=== PATIENT | female | born 1930 | race Caucasian/White ===

== ENCOUNTER 2017-12-02 21:25 | Emergency (ER) | payer OTHER ==
[2017-12-02 22:01] LABS: Absolute Lymphocytes (CBC) 2.9 K/uL (0.7-4.9); Basophils % 0.6 % (0-1.3); Eosinophils % 1.2 % (0-4.4); Hematocrit 38.5 % (36.0-45.0); Lymphocytes % 31.8 % (15.3-44.8); MCH 31.5 pg (27.0-35.0); MCV 93.4 fL (80-100); MPV 9.8 fL (7.6-11.3); Monocytes % 10.9 % (3.3-12.3); RBC Red Blood Cell Count 4.13 M/uL (3.86-4.86)
--- NOTE | 2017-12-02 22:05 | RAD REPORT ---
EXAM DESCRIPTION: CT - Head Brain Wo Cont - 12/02/2017 9:59 pm CLINICAL HISTORY: Altered mental status COMPARISON: None. TECHNIQUE: Axial 5 mm thick images of the head were obtained without IV contrast. All CT scans are performed using dose optimization technique as appropriate and may include automated exposure control or mA/KV adjustment according to patient size. FINDINGS: No intracranial hemorrhage, mass, edema or shift of mid-line structures. No cortical edema or sulcal effacement. Advanced atrophy and chronic ischemic changes are present. No abnormal extra-a xial fluid collections. Ventricular size is in proportion to volume loss. Mastoid air cells and visualized portions of the paranasal sinuses are clear. No acute bony findings. IMPRESSION: Advanced atrophy and chronic ischemic change. No acute intracranial finding.
[2017-12-02 22:07] LABS: Protime INR 1.07
[2017-12-02 22:15] LABS: Potassium 3.7 mEq/L (3.6-5.0)
[2017-12-02 22:21] LABS: Albumin 4.3 g/dL (3.2-5.5); Bilirubin Direct 0.2 mg/dL (0-0.2); Bilirubin Total 1.2 mg/dL (0.3-1.2); Magnesium 1.9 mg/dL (1.8-2.5); Protein, Total 7.9 g/dL (6.0-8.3)
[2017-12-02 22:24] LABS: CKMB Creatine Kinase MB 3.4 ng/ml (0.3-4.0)
[2017-12-02 22:41] LABS: Urine Blood NEGATIVE (NEG); Urine Glucose NEGATIVE (NEG); Urine Protein TRACE (NEG); Urine Specific Gravity 1.025 (1.005-1.030); Urine pH 5.5 (5.0-7.0)
[2017-12-02] MEDS ORDERED: NA CHLORIDE 0.9% 250 ML ONE (22:52)
[2017-12-02 23:09] LABS: Urine Bacteria <20 /HPF (<20); Urine Culture Reflex Order NOT NEEDED; Urine RBC <5 /HPF (NONE SEEN)
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
[2017-12-02 23:51] VITALS: TEMP 98.7
[2017-12-02 23:53] VITALS: BP 140/87; O2SAT 96
--- NOTE | 2017-12-03 09:43 | RAD REPORT ---
EXAM DESCRIPTION: Yovani Single View12/02/2017 10:07 pm CLINICAL HISTORY: Chest pain COMPARISON: 2013 FINDINGS: A 15 millimeter round structure overlies the right hilum. Left lung appears clear. . The heart is normal size IMPRESSION: 15 millimeter round structure overlying the right hilum may represent confluence of pulm onary vessels or lymphadenopathy. PA and lateral chest series is recommended
--- NOTE | 2017-12-03 10:40 | EKG ---
Test Date: 2017-12-02 Test Time: 21:52:01 Script Manager: TOMASZ MEASUREMENT RESULTS: Intervals: Rate: 96 NM: 132 QRSD: 80 QT: 362 QTc: 457 [place]: P: 54 NM: 132 QRS: -47 T: 19 INTERPRETIVE STATEMENTS: Normal sinus rhythm Left anterior fascicular block Cannot rule out Anterolateral infarct, age undetermined Abnormal ECG Compared to ECG 10/07/2014 00:56:38 Left anterior fascicular block now present Possible Myocardial infarct finding now present Left-axis deviation no longer present Electronically Signed On 12-03-17 10:40:05 CDT by Patrick Howard
== END 2017-12-02 23:47 | disposition home or self-care (01) ==
LOC: ER 21:25
DX: Z04.9 Encounter for examination and observation for unspecified reason (principal); E03.9 Hypothyroidism, unspecified; G30.9 Alzheimer's disease, unspecified; F02.80 Dementia in other diseases classified elsewhere, unspecified severity, without behavioral disturbance, psychotic disturbance, mood disturbance, and anxiety; Z88.2 Allergy status to sulfonamides
CPT/HCPCS: 36415; 70450; 71045; 80048; 80076; 81003; 81015; 82550; 82553; 83735; 83880; 84484; 85025; 85610; 85730; 93005; 96374; 99284

== ENCOUNTER 2018-05-03 18:05 | Observation (INO) | payer OTHER ==
--- OUTSIDE RECORDS SUMMARY | 2018-05-03 18:06 | XMS REPORT | Clinical Summary ---
:1930 Author Organization [facility] Address [address] [place] [address] Care Team Providers Name Role Phone Nevin Keller PA-C Primary Care Provider Allergies Active Allergy Reactions Severity Noted Date Comments Codeine Hives 02/28/2014 Hives/rash Sulfa (Sulfonamide Antibiotics) Anaphylaxis High 02/28/2014 Current Medications Prescription Sig. Disp. Refills Start Date End Date Status memantine (NAMENDA Take 1 tablet by 60 capsule 0 04/12/2017 Active XR) 7 mg mouth every capsule,sprinkle,ER morning for 2 24hrIndications: Late weeks and then 2 onset Alzheimer's tablets by mouth disease with every morning behavioral thereafter disturbance Active Problems Problem Noted Date Late onset Alzheimer's disease with behavioral disturbance 04/12/2017 Hallucinations 02/28/2017 Memory loss 02/28/2017 Immunizations Name Dates Previously Given Next Due Pneumococcal Polysaccharide 09/21/2015 Family History Medical History Relation Name Comments No Known Problems Father Pancreatic cancer Mother Relation Name Status Comments Father (Age 30) Mother (Age 81) Social History Tobacco Use Types Packs/Day Years Used Date Never Smoker Alcohol Use Drinks/Week oz/Week Comments No Sex Assigned at Date Recorded Not on file Last Filed Vital Signs Not on file Plan of Treatment Health Maintenance Due Date Last Done Comments SHINGRIX VACCINE (#1) 1982 ZOSTER VACCINE 1992 PNEUMOCOCCAL-13 1997 INFLUENZA VACCINE 02/14/2018 06/16/2015, 06/08/2015, 05/31/2015, Additional history exists PNEUMOCOCCAL POLYSACCHARIDE VACCINE Completed 09/21/2015 AGE 65 AND OVER Results Not on fileafter 05/02/2017 Insurance Payer Benefit Plan / Group Subscriber ID Type Phone Address [employer]ET[employer] A[employer] [facility] INDEMNITY xxxxxxxxxx Indemnity MEDICARE MEDICARE PART A AND B xxxxxxxxxx Medicare [place], [place] [phone] [address]
[2018-05-03 18:52] LABS: Arterial Blood Carboxyhemoglob 0.9 % (0-1.5); Blood Gas Oxyhemoglobin 93.5 % (94-97); Blood O2 Saturation 95.4 % (92-98.5)
[2018-05-03 19:22] LABS: Absolute Lymphocytes (CBC) 1.9 K/uL (0.7-4.9); Absolute Monocytes 0.7 K/uL (0.1-1.3); Absolute Neutrophil 4.8 K/uL (1.8-8.0); Basophils % 0.5 % (0-1.3); Eosinophils % 0.4 % (0-4.4); Hematocrit 37.8 % (36.0-45.0); Lymphocytes % 25.8 % (15.3-44.8); MCV 97.9 fL (80-100); MPV 10.8 fL (7.6-11.3); Monocytes % 9.2 % (3.3-12.3); RBC Red Blood Cell Count 3.86 M/uL (3.86-4.86)
[2018-05-03 19:27] LABS: ALT/SGPT 22 U/L (12-78); AST/SGOT 17 U/L (15-37); Albumin 3.2 g/dL (3.4-5.0); Alkaline Phosphatase 94 U/L (45-117); BUN Blood Urea Nitrogen 18 mg/dL (7-18); Bicarbonate 25 mmol/L (21-32); Bilirubin Direct 0.2 mg/dL (0-0.2); Bilirubin Total 0.4 mg/dL (0.2-1.0); Magnesium 2.1 mg/dL (1.8-2.4); Potassium 4.4 mmol/L (3.5-5.1); Protein, Total 6.8 g/dL (6.4-8.2); Sodium Level 133 mmol/L (136-145)
[2018-05-03 19:30] LABS: Glucose Level 570 mg/dL (74-106)
--- NOTE | 2018-05-03 19:58 | RAD REPORT ---
EXAM DESCRIPTION: Yovani Single View05/03/2018 7:21 pm CLINICAL HISTORY: Shortness of breath COMPARISON: November 2017 FINDINGS: The lungs appear clear of acute infiltrate. The heart is normal size IMPRESSION: No acute abnormalities displayed
[2018-05-03] MEDS ORDERED: INSULIN -REGULAR HUMAN 50 UNIT/0.5 ML ML ONE (20:00)
[2018-05-03] MEDS ORDERED: NA CHLORIDE 0.9% 1,000 ML ONE (20:00)
--- NOTE | 2018-05-03 20:26 | ER ---
Nurse's Notes [facility] Name: Kendal Marc Age: 88 yrs Sex: Female : 1930 Arrival Date: 05/03/2018 Time: 18:09 Bed 25 Private MD: Diagnosis: Hyperglycemia, unspecified;Altered mental status, unspecified Presentation: 05/03 18:38 Presenting complaint: EMS states: pt had SOB and low blood pressure at half-way, en tl3 route EMS BGL was "High" IV started and 500 ml NS bolus administered, rechecked BGL prior to arrival and it still read "High". Transition of care: patient was received from another setting of care (long-term care facility), [facility]. Onset of symptoms was May 03, 2018 at 18:40. Risk Assessment: Do you want to hurt yourself or someone else? Patient reports no desire to harm self or others. Initial Sepsis Screen: Does the patient meet any 2 criteria? No. Patient's initial sepsis screen is negative. Does the patient have a suspected source of infection? No. Patient's initial sepsis screen is negative. Care prior to arrival: Medication(s) given: Normal saline infusion, 500 mL, IV initiated. 22 GA, in the left antecubital area. 18:38 Method Of Arrival: EMS: [facility] tl3 18:38 Acuity: SUSANA 3 tl3 Triage Assessment: 18:43 General: Appears comfortable, slender, well groomed, well developed, Behavior is calm, tl3 cooperative, appropriate for age. Pain: Denies pain. EENT: No signs and/or symptoms were reported regarding the EENT system. Neuro: Level of Consciousness is awake, alert, obeys commands, Oriented to person, place. Cardiovascular: Patient's skin is warm and dry. Respiratory: Airway is patent Respiratory effort is even, unlabored, Respiratory pattern is tachypnea Breath sounds are clear bilaterally. GI: No signs and/or symptoms were reported involving the gastrointestinal system. : No signs and/or symptoms were reported regarding the genitourinary system. Derm: No signs and/or symptoms reported regarding the dermatologic system. Musculoskeletal: No signs and/or symptoms reported regarding the musculoskeletal system. Historical: - Allergies: 18:43 Sulfa (Sulfonamide Antibiotics); tl3 18:43 Codeine; tl3 18:43 fenofibrate; tl3 - Home Meds: 18:43 levothyroxine 25 mcg tab 1 tab once daily [Active]; doxycycline hyclate 100 mg Oral cap tl3 1 cap every 12 hours [Active]; - PMHx: 18:43 Alzheimers; Hypothyroidism; tl3 - Immunization history:: Adult Immunizations up to date. - Social history:: Smoking status: unknown. - Ebola Screening: : No symptoms or risks identified at this time. Screenin:47 Abuse screen: Denies threats or abuse. Nutritional screening: No deficits noted. tl3 Tuberculosis screening: No symptoms or risk factors identified. Fall Risk Secondary diagnosis (15 points). Assessment: 18:47 Reassessment: No changes from previously documented assessment. tl3 20:01 Reassessment: Patient appears in no apparent distress at this time. No changes from tl3 previously documented assessment. Patient and/or family updated on plan of care and expected duration. Pain level reassessed. Patient is alert, oriented x 3, equal unlabored respirations, skin warm/dry/pink. no needs at this time. 20:47 Reassessment: No changes from previously documented assessment. Patient and/or family tl3 updated on plan of care and expected duration. Pain level reassessed. Patient is alert, oriented x 3, equal unlabored respirations, skin warm/dry/pink. pt pulled out her IV, fluids stopped. 24g to right wrist, fluids restarted, IV secured with tegaderm, tape and covered with skyler wrap. 21:58 Reassessment: Patient appears in no apparent distress at this time. No changes from tl3 previously documented assessment. Patient and/or family updated on plan of care and expected duration. Pain level reassessed. Patient is alert, oriented x 3, equal unlabored respirations, skin warm/dry/pink. Dr Marsh at bedside, assisted with skin exam of buttocks there are two small areas one on each buttock that are healing abscesses. They are dime sized. 23:13 Reassessment: Patient appears in no apparent distress at this time. No changes from tl3 previously documented assessment. Patient and/or family updated on plan of care and expected duration. Pain level reassessed. Patient is alert, oriented x 3, equal unlabored respirations, skin warm/dry/pink. additional labs drawn with 21g butterfly to left wrist. Vital Signs: 18:43 BP 121 / 62; Pulse 53; Resp 24; Temp 97.8; tl3 20:01 BP 120 / 62; Pulse 62; Resp 18; Pulse Ox 99% on R/A; tl3 20:47 BP 104 / 56; Pulse 53; Resp 18; Pulse Ox 100% on R/A; tl3 21:58 BP 93 / 56; Pulse 57; Resp 18; Pulse Ox 95% on R/A; tl3 23:13 BP 96 / 57; Pulse 57; Resp 18; Pulse Ox 96% on R/A; tl3 ED Course: 18:09 Patient arrived in ED. tl3 18:14 Db Hughes PA is PHCP. jr8 18:14 Leroy Reddy MD is Attending Physician. jr8 18:38 Neli Mtz, MICHAEL is Primary Nurse. tl3 18:40 Triage completed. tl3 18:43 Arm band placed on left wrist. tl3 18:47 Patient has correct armband on for positive identification. Bed in low position. Call tl3 light in reach. Side rails up X2. Adult w/ patient. Pulse ox on. NIBP on. 18:47 No provider procedures requiring assistance completed. Inserted saline lock: 24 gauge tl3 in right forearm, using aseptic technique. Blood collected. 19:21 XRAY Chest (1 view) In Process Unspecified. EDMS 19:30 Notified Nurse Practitioner and/or Physician Neuro Urologist of a critical lab result(s), bb glucose 570 Db MEAD notified. 20:23 Cathy Marsh MD is Hospitalizing Provider. jr8 20:47 Inserted saline lock: 24 gauge in right wrist, using aseptic technique. tl3 21:47 Straight cath inserted, using sterile technique, 16 Fr. Returned clear yellow urine. tl3 Patient tolerated well. 23:13 Patient admitted, IV remains in place. tl3 Administered Medications: 19:58 Drug: Insulin Regular Human 10 units {Co-Signature: mg2 (Maverick Richey RN).} Route: tl3 IVP; Site: right forearm; 22:04 Follow up: Response: Blood sugar is lowered tl3 19:59 Drug: NS 0.9% 1000 ml Route: IV; Rate: 1000 ml; Site: right forearm; Delivery: Primary tl3 tubing; 22:08 Follow up: IV Status: Completed infusion; IV Intake: 1000ml tl3 Point of Care Testing: Blood Glucose: 18:43 Blood Glucose: High (>450 mg/dL); tl3 20:50 Blood Glucose: 433 mg/dL; tl3 21:57 Blood Glucose: 302 mg/dL; tl3 Ranges: Intake: 22:08 IV: 1000ml; Total: 1000ml. tl3 Output: 21:47 Urine: 700ml (Straight Cath); Total: 700ml. tl3 Outcome: 20:25 Decision to Hospitalize by Provider. kirstie 23:13 Admitted to Med/surg accompanied by tech, via wheelchair, with chart, Report called to tl3 MICHAEL Walters 23:13 Condition: stable 23:13 Instructed on the need for admit, Demonstrated understanding of instructions. 23:55 Patient left the ED. tl3 Signatures: Dispatcher [employer] Zabrina Lowe RN RN Db White PA PA jr8 Neli Mtz RN RN tl3 Maverick Richey RN mg2
--- NOTE | 2018-05-03 20:26 | EDPHYS ---
Physician Documentation [facility] Name: Kendal Marc Age: 88 yrs Sex: Female : 1930 Arrival Date: 05/03/2018 Time: 18:09 Bed 25 Private MD: ED Physician Leroy Reddy HPI: 05/03 19:39 This 88 yrs old Female presents to ER via EMS with complaints of weakness, jr8 AMS, difficulty breathing. 19:39 Family stated that they went to see her at [facility] today. Stated that when they jr8 got there she was more altered then normal and was curled up on her side breathing hard. EMS called and found that patients glucose was markedly elevated. Patient without history diabetes. Noticed over the past week or so that her mouth was more dry than normal . Severity of symptoms: At their worst the symptoms were moderate in the emergency department the symptoms are unchanged. The patient has not experienced similar symptoms in the past. The patient has not recently seen a physician. Historical: - Allergies: 18:43 Sulfa (Sulfonamide Antibiotics); tl3 18:43 Codeine; tl3 18:43 fenofibrate; tl3 - Home Meds: 18:43 levothyroxine 25 mcg tab 1 tab once daily [Active]; doxycycline hyclate 100 mg Oral cap tl3 1 cap every 12 hours [Active]; - PMHx: 18:43 Alzheimers; Hypothyroidism; tl3 - Immunization history:: Adult Immunizations up to date. - Social history:: Smoking status: unknown. - Ebola Screening: : No symptoms or risks identified at this time. ROS: 19:39 Eyes: Negative for injury, pain, redness, and discharge, ENT: Negative for injury, jr8 pain, and discharge, Neck: Negative for injury, pain, and swelling, Cardiovascular: Negative for chest pain, palpitations, and edema, Abdomen/GI: Negative for abdominal pain, nausea, vomiting, diarrhea, and constipation, Back: Negative for injury and pain, MS/Extremity: Negative for injury and deformity, Skin: Negative for injury, rash, and discoloration. 19:39 Neuro: Positive for altered mental status, Negative for seizure activity, syncope. Exam: 19:42 Eyes: Pupils equal round and reactive to light, extra-ocular motions intact. Lids and jr8 lashes normal. Conjunctiva and sclera are non-icteric and not injected. Cornea within normal limits. Periorbital areas with no swelling, redness, or edema. ENT: Nares patent. No nasal discharge, no septal abnormalities noted. Tympanic membranes are normal and external auditory canals are clear. Oropharynx with no redness, swelling, or masses, exudates, or evidence of obstruction, uvula midline. Mucous membranes moist. Neck: Trachea midline, no thyromegaly or masses palpated, and no cervical lymphadenopathy. Supple, full range of motion without nuchal rigidity, or vertebral point tenderness. No Meningismus. Cardiovascular: Regular rate and rhythm with a normal S1 and S2. No gallops, murmurs, or rubs. Normal PMI, no JVD. No pulse deficits. Respiratory: Lungs have equal breath sounds bilaterally, clear to auscultation and percussion. No rales, rhonchi or wheezes noted. No increased work of breathing, no retractions or nasal flaring. Abdomen/GI: Soft, non-tender, with normal bowel sounds. No distension or tympany. No guarding or rebound. No evidence of tenderness throughout. Back: No spinal tenderness. No costovertebral tenderness. Full range of motion. Skin: Warm, dry with normal turgor. Normal color with no rashes and no evidence of cellulitis. Small 2 cm sized pressure lesions noted to buttock. Left buttock with stage 1 ulcer. Right with stage 2 ulcer MS/ Extremity: Pulses equal, no cyanosis. Neurovascular intact. Full, normal range of motion. Neuro: Awake and alert, GCS 15, oriented to person, place. Cranial nerves II-XII grossly intact. Motor strength 5/5 in all extremities. Sensory grossly intact. Vital Signs: 18:43 BP 121 / 62; Pulse 53; Resp 24; Temp 97.8; tl3 20:01 BP 120 / 62; Pulse 62; Resp 18; Pulse Ox 99% on R/A; tl3 20:47 BP 104 / 56; Pulse 53; Resp 18; Pulse Ox 100% on R/A; tl3 21:58 BP 93 / 56; Pulse 57; Resp 18; Pulse Ox 95% on R/A; tl3 23:13 BP 96 / 57; Pulse 57; Resp 18; Pulse Ox 96% on R/A; tl3 MDM: 18:14 Patient medically screened. [facility] 20:22 Data reviewed: vital signs, nurses notes, lab test result(s), radiologic studies, plain jr8 films, and as a result, I will discharge patient. Data interpreted: Pulse oximetry: on room air is 99 %. Interpretation: normal. Counseling: I had a detailed discussion with the patient and/or guardian regarding: the historical points, exam findings, and any diagnostic results supporting the discharge/admit diagnosis, lab results, radiology results, the need for further work-up and treatment in the hospital. Physician consultation: Cathy Marsh MD was called at 20:23, was contacted at 20:23, regarding admission, to the medical/surgical unit. consult, patient's condition, and will see patient. 05/03 18:35 Order name: Basic Metabolic Panel; Complete Time: 19:36 jr8 05/03 18:35 Order name: CBC with Diff; Complete Time: 19:29 jr8 05/03 18:35 Order name: LFT's; Complete Time: 19:36 jr8 05/03 18:35 Order name: Magnesium; Complete Time: 19:36 jr8 05/03 18:35 Order name: Ketone, Serum; Complete Time: 19:36 jr8 05/03 18:37 Order name: ABG; Complete Time: 19:15 jr8 05/03 18:35 Order name: XRAY Chest (1 view); Complete Time: 20:08 jr8 05/03 18:35 Order name: EKG; Complete Time: 18:36 jr8 05/03 21:48 Order name: Troponin I; Complete Time: 23:28 EDMS 05/03 21:54 Order name: Urine Dipstick--Ancillary (enter results); Complete Time: 23:19 ms 05/03 21:58 Order name: Lactate; Complete Time: 23:28 EDMS 05/03 21:58 Order name: Procalcitonin EDMS 05/03 18:35 Order name: Cardiac monitoring; Complete Time: 18:53 jr8 05/03 18:35 Order name: EKG - Nurse/Tech; Complete Time: 18:53 jr8 05/03 18:35 Order name: IV Saline Lock; Complete Time: 18:53 jr8 05/03 18:35 Order name: Labs collected and sent; Complete Time: 18:53 jr8 05/03 18:35 Order name: O2 Per Protocol; Complete Time: 18:53 jr8 05/03 18:35 Order name: O2 Sat Monitoring; Complete Time: 18:53 jr8 05/03 18:35 Order name: Urine Dipstick-Ancillary (obtain specimen); Complete Time: 22:24 jr8 Administered Medications: 19:58 Drug: Insulin Regular Human 10 units {Co-Signature: mg2 (Maverick Richey RN).} Route: tl3 IVP; Site: right forearm; 22:04 Follow up: Response: Blood sugar is lowered tl3 19:59 Drug: NS 0.9% 1000 ml Route: IV; Rate: 1000 ml; Site: right forearm; Delivery: Primary tl3 tubing; 22:08 Follow up: IV Status: Completed infusion; IV Intake: 1000ml tl3 Point of Care Testing: Blood Glucose: 18:43 Blood Glucose: High (>450 mg/dL); tl3 20:50 Blood Glucose: 433 mg/dL; tl3 21:57 Blood Glucose: 302 mg/dL; tl3 Ranges: Critical Glucose Levels:Adult <50 mg/dl or >400 mg/dl <40 mg/dl or >180 mg/dl Disposition: 05/03/18 20:25 Hospitalization ordered by Cathy Marsh for Inpatient Admission. Preliminary diagnosis are Hyperglycemia, unspecified, Altered mental status, unspecified. - Bed requested for Telemetry/MedSurg (Inpatient). - Status is Inpatient Admission. tl3 - Condition is Stable. - Problem is new. - Symptoms have improved. UTI on Admission? No Addendum: 05/05/2018 20:56 Co-signature as Attending Physician, Leroy Reddy MD. r n Signatures: Dispatcher [employer] EDAna Mireles RN RN kl Nieto, Roman, MD MD rn Roszak, Josh, PA PA jr8 Neli Mtz RN RN tl3 Maverick Richey RN mg2 Corrections: (The following items were deleted from the chart) 05/03 19:42 19:39 Family stated that they went to see her at [facility] today. Stated that when jr8 they got there she was more altered then normal and was curled up on her side breathing hard. EMS called and found that patients glucose was markedly elevated. Patient without history diabetes . jr8 21:43 19:42 Eyes: Pupils equal round and reactive to light, extra-ocular motions intact. Lids jr8 and lashes normal. Conjunctiva and sclera are non-icteric and not injected. Cornea within normal limits. Periorbital areas with no swelling, redness, or edema. ENT: Nares patent. No nasal discharge, no septal abnormalities noted. Tympanic membranes are normal and external auditory canals are clear. Oropharynx with no redness, swelling, or masses, exudates, or evidence of obstruction, uvula midline. Mucous membranes moist. Neck: Trachea midline, no thyromegaly or masses palpated, and no cervical lymphadenopathy. Supple, full range of motion without nuchal rigidity, or vertebral point tenderness. No Meningismus. Cardiovascular: Regular rate and rhythm with a normal S1 and S2. No gallops, murmurs, or rubs. Normal PMI, no JVD. No pulse deficits. Respiratory: Lungs have equal breath sounds bilaterally, clear to auscultation and percussion. No rales, rhonchi or wheezes noted. No increased work of breathing, no retractions or nasal flaring. Abdomen/GI: Soft, non-tender, with normal bowel sounds. No distension or tympany. No guarding or rebound. No evidence of tenderness throughout. Back: No spinal tenderness. No costovertebral tenderness. Full range of motion. Skin: Warm, dry with normal turgor. Normal color with no rashes, no lesions, and no evidence of cellulitis. MS/ Extremity: Pulses equal, no cyanosis. Neurovascular intact. Full, normal range of motion. Neuro: Awake and alert, GCS 15, oriented to person, place. Cranial nerves II-XII grossly intact. Motor strength 5/5 in all extremities. Sensory grossly intact. jr8 22:50 20:25 Hospitalization Ordered by Cathy Marsh MD for Inpatient Admission. Preliminary kl diagnosis is Hyperglycemia, unspecified; Altered mental status, unspecified. Bed requested for Telemetry/MedSurg (Inpatient). Status is Inpatient Admission. Condition is Stable. Problem is new. Symptoms have improved. UTI on Admission? No. jr8 23:55 22:50 05/03/2018 20:25 Hospitalization Ordered by Cathy Marsh MD for Inpatient tl3 Admission. Preliminary diagnosis is Hyperglycemia, unspecified; Altered mental status, unspecified. Bed requested for Telemetry/MedSurg (Inpatient). Status is Inpatient Admission. Condition is Stable. Problem is new. Symptoms have improved. UTI on Admission? No. kl
[2018-05-03] MEDS ORDERED: ONDANSETRON 4 MG/2 ML VIAL IV PRN (23:02)
[2018-05-03 23:17] LABS: Urine Blood NEGATIVE (NEG); Urine Glucose 2+ (NEG); Urine Protein NEGATIVE (NEG); Urine Specific Gravity <1.005 (1.005-1.030); Urine pH 5.5 (5.0-7.0)
[2018-05-04] MEDS: NA CHLORIDE 0.9% 1,000 ML IV SCH ×2 (00:22→09:15)
[2018-05-04 00:39] VITALS: BMI 20.3
[2018-05-04] MEDS ORDERED: TRAZODONE 50 MG TABLET PO ONE (00:42)
--- NOTE | 2018-05-04 05:08 | P.HP ---
Certification for Inpatient Patient admitted to: Inpatient With expected LOS: >2 Midnights Practitioner: I am a practitioner with admitting privileges, knowledge of patient current condition, hospital course, and medical plan of care. Services: Services provided to patient in accordance with Admission requirements found in Title 42 Section 412.3 of the Code of Federal Regulations Patient History Date of Service: 05/03/18 Reason for admission: Acute encephalopathy, hyperglycemia History of Present Illness: Ms Marc is an 88-year-old woman with history of Alzheimer dementia, and hypothyroidism, resident of a penitentiary, who became more lethargic, and sleepy this afternoon around 6:00 p.m. the was no history of fever or chills, no chest pain, nausea, vomiting or diarrhea. skilled nursing staff report some shortness of breath, but in ER the patient was without respiratory distress. The patient is not able to provide any history at this point. Lab work remarkable for hyperglycemia 570 mg/dl. The patient has no documented history of diabetes. Vital signs remarkable for borderline low blood pressures 93/56, HR 53 bpm. Allergies codeine Allergy (Verified 05/04/18 00:15) Rash Sulfa (Sulfonamide Antibiotics) Allergy (Verified 05/04/18 00:15) Shortness of breath Home medications list reviewed: Yes Home Medications: Acetaminophen 500 mg PO Q4H PRN 05/04/18 LORazepam [Ativan*] 1 tab PO BID PRN 05/04/18 Levothyroxine Sodium 25 mcg PO DAILY 05/04/18 Nystatin Cream [Mycostatin 100MU/Gm Cream*] 1 salma TOP BID 05/04/18 - Past Medical/Surgical History Has patient received pneumonia vaccine in the past: Yes Diabetic: No -: Hypothyroidism -: Alzheimer/Dementia -: Sundowner -: strokes x2 -: MELANOMA -: OSTEOARTHRITIS -: OSTEOPENIA -: 3 c sections -: left leg surgery -: removal of spleen and pancreatic mass - Family History Mother -: Cancer, Other (see notes) Notes: pancreatic cancer - Social History Smoking Status: Never smoker Alcohol use: No CD- Drugs: No Caffeine use: Yes Place of Residence: [facility] Review of Systems 10-point ROS is otherwise unremarkable Physical Examination - Vital Signs Temperature: 97.0 F Blood Pressure: 112/52 Pulse: 50 Respirations: 18 Pulse Ox (%): 96 - Physical Exam General: Alert, In no apparent distress, Demented HEENT: Atraumatic, PERRLA, Mucous membr. moist/pink, EOMI, Sclerae nonicteric Neck: Supple, 2+ carotid pulse no bruit, No LAD, Without JVD or thyroid abnormality Respiratory: Clear to auscultation bilaterally, Normal air movement Cardiovascular: Regular rate/rhythm, Normal S1 S2 Gastrointestinal: Normal bowel sounds, No tenderness Musculoskeletal: No tenderness Integumentary: No rashes Neurological: Normal strength at 5/5 x4 extr, Normal tone, Normal affect Lymphatics: No axilla or inguinal lymphadenopathy - Studies Laboratory Data (last 24 hrs) 05/03/18 18:35: WBC 7.5, Hgb 12.4, Hct 37.8, Plt Count 245 05/03/18 18:35: Sodium 133 L, Potassium 4.4, BUN 18, Creatinine 0.80, Glucose 570 H*, Magnesium 2.1, Total Bilirubin 0.4, AST 17, ALT 22, Alkaline Phosphatase 94 Assessment and Plan - Problems (Diagnosis) (1) Acute encephalopathy Current Visit: Yes Status: Acute (2) Alzheimer's dementia Current Visit: Yes Status: Acute Qualifiers: Alzheimer's disease onset: unspecified onset Dementia behavioral disturbance: without behavioral disturbance Qualified Code(s): G30.9 - Alzheimer's disease, unspecified; F02.80 - Dementia in other diseases classified elsewhere without behavioral disturbance (3) Hypothyroidism Onset Date: 10/13/14 Current Visit: No Status: Acute Qualifiers: Hypothyroidism type: unspecified Qualified Code(s): E03.9 - Hypothyroidism , unspecified (4) Hyperglycemia Current Visit: Yes Status: Acute - Plan The patient will be admitted to the hospital due to acute encephalopathy. No clear etiology yet. Laboratory work was remarkable only for hyperglycemia. She has received IV insulin in ER. WBC count, lactate, procalcitonin are normal. Will check TSH and hemoglobin A1c. Continue IV fluids and blood sugar monitoring. - Advance Directives Does patient have a Living Will: Yes Does patient have a Durable POA for Healthcare: No - Code Status/Comfort Care Code Status Assessed: Yes Code Status: Do Not Resuscitate
[2018-05-04 06:06] LABS: Absolute Lymphocytes (CBC) 2.8 K/uL (0.7-4.9); Absolute Monocytes 0.7 K/uL (0.1-1.3); Absolute Neutrophil 3.7 K/uL (1.8-8.0); Basophils % 0.4 % (0-1.3); Eosinophils % 1.3 % (0-4.4); Hematocrit 31.1 % (36.0-45.0); Lymphocytes % 38.4 % (15.3-44.8); MCV 94.9 fL (80-100); MPV 10.1 fL (7.6-11.3); Monocytes % 9.6 % (3.3-12.3); RBC Red Blood Cell Count 3.28 M/uL (3.86-4.86)
[2018-05-04] MEDS: INSULIN -REGULAR HUMAN 50 UNIT/0.5 ML ML SQ SCH ×5 (06:18→21:00)
[2018-05-04 06:22] LABS: BUN Blood Urea Nitrogen 14 mg/dL (7-18); Bicarbonate 24 mmol/L (21-32); Glucose Level 254 mg/dL (74-106); Potassium 3.4 mmol/L (3.5-5.1); Sodium Level 139 mmol/L (136-145)
[2018-05-04] MEDS ORDERED: LEVOTHYROXINE SOD 0.025 MG TAB PO SCH (06:30)
--- NOTE | 2018-05-04 06:50 | EKG ---
Test Date: 2018-05-03 Test Time: 19:01:32 Gamb Cutter: [place] MEASUREMENT RESULTS: Intervals: Rate: 51 NC: 138 QRSD: 88 QT: 456 QTc: 420 [place]: P: 8 NC: 138 QRS: -40 T: -21 INTERPRETIVE STATEMENTS: Sinus bradycardia Left axis deviation Possible Anterior infarct, age undetermined Abnormal ECG Compared to ECG 12/02/2017 21:52:01 Left-axis deviation now present Sinus rhythm no longer present Left anterior fascicular block no longer present Myocardial infarct finding still present Electronically Signed On 05-04-18 06:49:06 CDT by Maurice Craft
[2018-05-04] MEDS ORDERED: POTASSIUM 25 MEQ EFFERV TAB PO ONE (07:00)
[2018-05-04] MEDS ORDERED: INFLUENZA VACCINE (for 3y+) 0.5 ML DOSE IMVAC ONE (08:00)
[2018-05-04] MEDS: ENOXAPARIN 40 MG/0.4 ML SQ SCH ×2 (09:14→10:21)
--- NOTE | 2018-05-04 09:55 | RAD REPORT ---
EXAM DESCRIPTION: CT - Head Brain Wo Cont - 05/04/2018 8:46 am CLINICAL HISTORY: Alteration of awareness/dementia COMPARISON: November 2017 TECHNIQUE: Computed axial tomography of the head was obtained. IV contrast was not requested. All CT scans are performed using dose optimization technique as appropriate and may include automated exposure control or mA/KV adjustment according to patient size. FINDINGS: An intracranial bleed is not seen . The ventricles are normal in caliber. No extra-axial fluid collection is noted. Moderate low-density areas within periventricular, deep and subcortical white matter likely represent ischemic changes secondary to small vessel disease. Cerebr al atrophy is noted. Fluid within the sinuses/ mastoids is not seen. IMPRESSION: No acute intracranial abnormality is seen. If patient's symptoms persist MRI of the bra in would be recommended.
[2018-05-04] MEDS ORDERED: LORAZEPAM 0.5 MG TABLET PO PRN (11:05)
--- NOTE | 2018-05-04 11:13 | P.PN ---
Subjective Date of Service: 05/04/18 Primary Care Provider: [facility] resident Chief Complaint: Acute encephalopathy, hyperglycemia Subjective: Demented, Other (Patient more alert today.) Physical Examination - Vital Signs Temperature: 98.8 F Blood Pressure: 106/59 Pulse: 62 Respirations: 16 Pulse Ox (%): 96 - Physical Exam General: Alert, In no apparent distress, Cooperative, Demented HEENT: Atraumatic, Other (Dry mucous membranes) Neck: Supple Respiratory: Clear to auscultation bilaterally, Normal air movement Cardiovascular: Normal pulses, Regular rate/rhythm Gastrointestinal: Normal bowel sounds, Soft and benign, Non-distended, No tenderness, No masses, No rebound, No guarding Musculoskeletal: No erythema, No tenderness, No warmth Integumentary: No erythema, No warmth, No cyanosis, Other (Nurses report pressure ulcers to the buttocks region) Neurological: Normal speech, Normal strength at 5/5 x4 extr, Normal tone, Dementia - Studies Laboratory Data (last 24 hrs) 05/03/18 18:35: WBC 7.5, Hgb 12.4, Hct 37.8, Plt Count 245 05/03/18 18:35: Sodium 133 L, Potassium 4.4, BUN 18, Creatinine 0.80, Glucose 570 H*, Magnesium 2.1, Total Bilirubin 0.4, AST 17, ALT 22, Alkaline Phosphatase 94 Medications List Reviewed: Yes Assessment & Plan Discharge Plan: Halfway Plan to discharge in: 24 Hours Physician Review Additional Text: Impression: Altered mental status with fatigue likely encephalopathy related to hyperglycemia with new diagnosis of diabetes mellitus type Hypothyroidism Alzheimer's dementia Suspect thrush Pressure ulcer with eschar to the buttocks region History of CVA Plan: Altered mental status with fatigue likely encephalopathy related to hyperglycemia with new diagnosis of diabetes mellitus type: A1c significantly elevated. Patient with new diagnosis of diabetes. Blood sugar better controlled. Will continue with Accu-Cheks and sliding scale. Will start metformin 500 mg 1 pill twice daily. Will not be aggressive in getting blood pressure controlled due to her age and dementia. Will continue with IV fluids. Will have physical therapy assess ambulation. Anticipate discharge likely as early as today or tomorrow. CT scan of the head unremarkable. Patient with history of CVA in the past. Will check stroke protocol MRI to further evaluate. No signs of infection. case discussed with son. Hypothyroidism: Will continue with her medication. Tsh within normal range. Alzheimer's dementia: Will continue with her medication Suspect thrush: Will start nystatin. Pressure ulcer with eschar to the buttocks region: Will have wound care evaluate and make further recommendations to be continued at the [facility]. Surgery was consulted to further evaluate. History of CVA: Will start aspirin 81 mg daily. Will continue with DVT prophylaxis. Will check stroke protocol MRI to further evaluate. Time Spent Managing Pts Care (In Minutes): 55
[2018-05-04] MEDS: NACHLORIDE 0.45% 1,000 ML IV SCH (12:11)
[2018-05-04] MEDS: COLLAGENASE 30 GM OINTMENT TOP SCH (14:58)
[2018-05-04] MEDS: NYSTATIN 500,000 UNIT/5 ML UDC PO SCH ×2 (14:59→21:00)
--- NOTE | 2018-05-04 15:09 | RAD REPORT ---
EXAM DESCRIPTION: MRI - Brain W/Wo Cont - 05/04/2018 2:37 pm CLINICAL HISTORY: CVA COMPARISON: May 04, [address] TECHNIQUE: Axial, sagittal, and coronal magnetic images of the brain were obtained. 17 cc MultiHance administered intravenously FINDINGS: Moderate signal is present within periventricular, deep and subcortical white matter Cerebral atrophy is seen. Diffusion-weighted/ADC mapping does not reveal evidence of acute infarction. The ventricles are normal caliber. No abnormal enhancement is displayed An extra-axial fluid collection is not present The sinuses and mastoids are clear. IMPRESSION: Moderate signal within periventricular, deep and subcortical white matter probably repre senting ischemic changes secondary to small vessel disease. No acute intracranial abnormality is noted
--- NOTE | 2018-05-04 15:11 | RAD REPORT ---
EXAM DESCRIPTION: MRI - MRA Head Wo Cont - 05/04/2018 2:37 pm CLINICAL HISTORY: CVA COMPARISON: None. TECHNIQUE: Magnetic resonance angiogram of the head was performed. 3D MIPS reconstruction performed FINDINGS: The visualized anterior cerebral, middle cerebral, left posterior cerebral, basilar and di stal internal carotid arteries do not demonstrate a significant stenosis. Right posterior cerebral artery is small likely a chronic finding. An aneurysm is not seen IMPRESSION: No acute abnormality is displayed
--- NOTE | 2018-05-04 15:12 | RAD REPORT ---
EXAM DESCRIPTION: MRI - MRA Neck W/Wo Cont - 05/04/2018 2:37 pm CLINICAL HISTORY: CVA COMPARISON: None. TECHNIQUE: Magnetic resonance angiogram of the neck was performed. 17 cc MultiHance administered int ravenously. 3D MIPS reconstruction performed FINDINGS: The common carotid, internal carotid and external carotid arteries do not demonstrate a si gnificant stenosis. An aneurysm is not seen. The vertebral arteries are codominant without visualization of an abnormality. IMPRESSION: Unremarkable MRA neck
--- NOTE | 2018-05-04 15:52 | CON ---
Date of Consultation: 05/04/2018 Reason For Consultation: Gluteal wound. Brief History Of Present Illness: The patient is an 88-year-old female, with history of Al zheimer dementia, hypothyroidism, resident of residential, who became lethargic, sleepy and was admi tted to the hospital with shortness of breath and the above-stated complaints. The nursing staff rep orted some shortness of breath and she was seen in the ER without respiratory distress. She is a poo r historian, however, due to her history of Alzheimer dementia. Past Medical History: Significant for hypothyroidism, Alzheimer dementia, sundown effect, strokes x2 , melanoma, osteoarthritis, and osteopenia. 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 Allergies: TO CODEINE AND SULFA. Home Medications: Include Tylenol, Ativan, levothyroxine, and Mycostatin. Review of Systems: Unable to obtain as the patient is a poor historian. Physical Examination: Vital Signs: At time of my examination, her BMI is 28.4. Her vital signs were blood pressure of 112 /52, pulse is 50, respiratory rate 18, and temperature 97.0. General: She is awake, alert, and oriented at this time to person and place, but she is a poor histo suhail with respect to her medical condition. Psychiatric: She answers questions appropriately though. HEENT: She is normocephalic. Sclerae are anicteric. Mucous membranes are moist. Oropharynx is joshua ar. Neck: Supple. No JVD. Chest: Normal expansion and excursion. Cardiovascular: Regular rate and rhythm. Pulmonary: Clear to auscultation bilaterally. Abdomen: Soft, nontender. Back: Focused examination of the back shows 2 buttock lesions, one is a grade 1 on the left buttock near the inferior gluteal fold, pressure-type effect, with no skin breakdown, slight cellulitic dash e, approximately 1 cm in size. On the right buttock, there is a corresponding 1 cm lesion, which has skin breakage type 1 buttock decubitus ulcer. There is an eschar over the top, but there is no drai nable collection. There is tenderness to the area and some hyperemia also about 1 cm in size. Laboratory Data: She had a laboratory exam, reveals a white blood cell count of 7.4, hemoglobin 10.8 , hematocrit 31.1, platelet count is 222, neutrophils are 50%. Her sodium was 139, potassium 3.4, ch loride 106, carbon dioxide 24, BUN 14, creatinine 0.5, glucose is 254, it was 570 on admission. Her calcium was 8.0. Her UA was essentially negative. Assessment And Plan: This is an 88-year-old female who comes in with multiple medical problems as se en above, who has 2 wounds to the buttock area, one a simple skin pressure ulcer, the other a simple area of cellulitis, likely due to pressure effect. 1.I recommend to continue medical management. 2.Blood sugar control. 3.Santyl with damp-to-dry dressing changes on the right buttock wound and DuoDERM on the left buttoc k wound and pressure reduction strategy with rotation of the patient every 2 hours. I have explained the risks, benefits, and alternatives of the above-stated plan. The patient agrees to proceed as in dicated. SHOSHANA/RACHEAL Voice ID: [id number] Report ID: [id number]
[2018-05-04] MEDS: METFORMIN HCL 500 MG TAB PO SCH (17:01)
[2018-05-04] MEDS: NYSTATIN 100MU/GM CREAM 15GM TOP SCH (21:00)
[2018-05-05] MEDS: NACHLORIDE 0.45% 1,000 ML IV SCH (01:20)
[2018-05-05 06:09] LABS: Absolute Lymphocytes (CBC) 2.8 K/uL (0.7-4.9); Absolute Monocytes 0.9 K/uL (0.1-1.3); Basophils % 0.7 % (0-1.3); Eosinophils % 0.9 % (0-4.4); Hematocrit 31.9 % (36.0-45.0); Lymphocytes % 31.6 % (15.3-44.8); MCH 32.9 pg (27.0-35.0); MCV 95.3 fL (80-100); MPV 10.4 fL (7.6-11.3); Monocytes % 10.3 % (3.3-12.3); RBC Red Blood Cell Count 3.34 M/uL (3.86-4.86)
[2018-05-05 06:23] LABS: BUN Blood Urea Nitrogen 7 mg/dL (7-18); Bicarbonate 24 mmol/L (21-32); Glucose Level 152 mg/dL (74-106); Potassium 3.4 mmol/L (3.5-5.1); Sodium Level 136 mmol/L (136-145)
[2018-05-05] MEDS ORDERED: LEVOTHYROXINE SOD 0.025 MG TAB PO SCH (06:30)
[2018-05-05] MEDS ORDERED: PANTOPRAZOLE 40MG TABLET PO SCH (06:30)
[2018-05-05 06:42] LABS: Urine Appearance CLEAR; Urine Bilirubin NEGATIVE (NEG); Urine Blood NEGATIVE (NEG); Urine Color YELLOW; Urine Glucose 2+ (NEG); Urine Microscopic Reflex NO UMIC; Urine Protein NEGATIVE (NEG); Urine Urobilinogen 0.2 mg/dL (0.2-1.0); Urine pH 5.5 (5.0-7.0)
[2018-05-05] MEDS: INSULIN -REGULAR HUMAN 50 UNIT/0.5 ML ML SQ SCH ×2 (07:30→12:09)
[2018-05-05] MEDS: NYSTATIN 100MU/GM CREAM 15GM TOP SCH (09:00)
[2018-05-05] MEDS ORDERED: ASPIRIN EC 81 MG TAB PO SCH (09:00)
[2018-05-05] MEDS ORDERED: ENSURE PUDDING 4 OZ CUP PO SCH (09:00)
[2018-05-05] MEDS ORDERED: POTASSIUM 25 MEQ EFFERV TAB PO ONE (09:00)
--- NOTE | 2018-05-05 09:42 | P.DS ---
Admission Date: 05/03/18 Discharge Date: 05/05/18 [facility] Care Provider: [facility] Disposition: ROUTINE DISCHARGE Discharge Condition: GOOD Reason for Admission: Acute encephalopathy, hyperglycemia Procedures: MRI Brain: COMPARISON: May 04, [address] TECHNIQUE: Axial, sagittal, and coronal magnetic images of the brain were obtained. 17 cc MultiHance administered intravenously FINDINGS: Moderate signal is present within periventricular, deep and subcortical white matter Cerebral atrophy is seen. Diffusion-weighted/ADC mapping does not reveal evidence of acute infarction. The ventricles are normal caliber. No abnormal enhancement is displayed An extra-axial fluid collection is not present The sinuses and mastoids are clear. IMPRESSION: Moderate signal within periventricular, deep and subcortical white matter probably representing ischemic changes secondary to small vessel disease. No acute intracranial abnormality is noted MRA Brain: COMPARISON: None. TECHNIQUE: Magnetic resonance angiogram of the head was performed. 3D MIPS reconstruction performed FINDINGS: The visualized anterior cerebral, middle cerebral, left posterior cerebral, basilar and distal internal carotid arteries do not demonstrate a significant stenosis. Right posterior cerebral artery is small likely a chronic finding. An aneurysm is not seen IMPRESSION: No acute abnormality is displayed Neck Brain: COMPARISON: None. TECHNIQUE: Magnetic resonance angiogram of the neck was performed. 17 cc MultiHance administered intravenously. 3D MIPS reconstruction performed FINDINGS: The common carotid, internal carotid and external carotid arteries do not demonstrate a significant stenosis. An aneurysm is not seen. The vertebral arteries are codominant without visualization of an abnormality. IMPRESSION: Unremarkable MRA neck Impression: Altered mental status with fatigue likely encephalopathy related to hyperglycemia with new diagnosis of diabetes mellitus type Hypothyroidism Alzheimer's dementia, severe Thrush Pressure ulcer with eschar to the buttocks region History of CVA Brief History of Present Illness: 88-year-old female presented to emergency room with increased fatigue and altered mental status. Patient with history of dementia. Patient found to have elevated blood sugar. Patient was admitted for treatment and further evaluation. Hospital Course: Patient presented to the hospital with altered mental status and fatigue. No evidence of infection identified. Encephalopathy related to hyperglycemia with new diagnosis of diabetes mellitus type 2 identified. A1c was elevated greater than 16. Diabetic medication initiated. At discharge she will continue with metformin 1000 mg 1 pill twice daily. Recommendation to monitor blood sugars at least twice daily. Recommendation is to maintain blood sugars less than 140 fasting and less than 200 after meals. Further adjustment [facility] be done at than [facility]. Family plans to take her back to her prior PCP-Dr. Arrington. Recommendation is for the patient to follow up with her PCP in 1 week to monitor and further address. Patient may require additional medication for better control. Recommend not to aggressively treat her diabetes as this may cause hypoglycemia in the elderly. Patient will need continue with a diabetic association diet at the [facility] facility. Patient has hypothyroidism. Patient will continue with her medication- levothyroxine 25 mcg daily. Patient has Alzheimer's dementia. Her dementia is severe. Patient currently in an Alzheimer's unit. MRI unremarkable for acute stroke. She will continue with the medication-Ativan 0.5 mg 1 pill twice daily. Further adjustment in medication can be done by her PCP. Patient with history of CVA. MRI unremarkable. Patient may continue with aspirin 81 mg daily. Patient has pressure ulcers to the buttocks region. Patient evaluated by surgery. Surgery recommends santyl with damp to dry dressing changes on the right buttocks wound and DuoDerm on the left buttocks wound and pressure reduction strategy with rotation of the patient every 2 hr. This can be further addressed at the [facility]. Patient found to have thrush. Patient will continue with nystatin oral solution [id number] units 3 times a day swish and swallow for 5 days. Vital Signs/Physical Exam: Temp Pulse Resp BP Pulse Ox 97.9 F 70 18 103/53 L 93 05/05/18 08:00 05/05/18 08:00 05/05/18 08:00 05/05/18 08:00 05/05/18 08:00 General: Alert, In no apparent distress, Cooperative, Demented HEENT: Atraumatic Neck: Supple Respiratory: Clear to auscultation bilaterally, Normal air movement Cardiovascular: Normal pulses, Regular rate/rhythm Gastrointestinal: Normal bowel sounds, Soft and benign, Non-distended, No tenderness, No masses, No rebound, No guarding Musculoskeletal: No erythema, No tenderness, No warmth Neurological: Dementia Laboratory Data at Discharge: WBC 8.8 K/uL (4.3-10.9) D 05/05/18 05:40 Hgb 11.0 g/dL (12.0-15.0) L 05/05/18 05:40 Hct 31.9 % (36.0-45.0) L 05/05/18 05:40 Plt Count 203 K/uL (152-406) 05/05/18 05:40 Sodium 136 mmol/L (136-145) 05/05/18 05:40 Potassium 3.4 mmol/L (3.5-5.1) L 05/05/18 05:40 BUN 7 mg/dL (7-18) 05/05/18 05:40 Creatinine 0.40 mg/dL (0.55-1.3) L 05/05/18 05:40 Glucose 152 mg/dL (74-106) H 05/05/18 05:40 Magnesium 2.0 mg/dL (1.8-2.4) 05/05/18 05:40 Total Bilirubin 0.4 mg/dL (0.2-1.0) 05/03/18 18:35 AST 17 U/L (15-37) 05/03/18 18:35 ALT 22 U/L (12-78) 05/03/18 18:35 Alkaline Phosphatase 94 U/L (45-117) 05/03/18 18:35 Troponin I 0.03 ng/mL (0.0-0.045) 05/03/18 22:50 Home Medications: Acetaminophen 500 mg PO Q4H PRN 05/04/18 LORazepam [Ativan*] 1 tab PO BID PRN 05/04/18 Levothyroxine Sodium 25 mcg PO DAILY 05/04/18 Nystatin Cream [Mycostatin 100MU/Gm Cream*] 1 salma TOP BID 05/04/18 Aspirin [Aspirin EC 81 MG] 81 mg PO DAILY #90 tablet. 05/05/18 Collagenase [Santyl Ointment*] 1 appl TOP DAILY #1 tube 05/05/18 Metformin HCl 1,000 mg PO BID #60 tablet 05/05/18 Nystatin 5 ml PO TID #1 bottle 05/05/18 New Medications: Aspirin [Aspirin EC 81 MG] 81 mg PO DAILY #90 tablet. Collagenase [Santyl Ointment*] 1 appl TOP DAILY #1 tube Metformin HCl 1,000 mg PO BID #60 tablet Nystatin 5 ml PO TID #1 bottle Patient Discharge Instructions: 1. Patient will need to follow up with her PCP- Dr. Arrington within 1 week to follow up this hospitalization. 2. Patient presented to the hospital with altered mental status and fatigue. No evidence of infection identified. Encephalopathy related to hyperglycemia with new diagnosis of diabetes mellitus type 2 identified. A1c was elevated greater than 16. Diabetic medication initiated. At discharge she will continue with metformin 1000 mg 1 pill twice daily. Recommendation to monitor blood sugars at least twice daily. Recommendation is to maintain blood sugars less than 140 fasting and less than 200 after meals. Further adjustment can be done at than [facility]. Family plans to take her back to her prior PCP-Dr. Arrington. Recommendation is for the patient to follow up with her PCP in 1 week to monitor and further address. Patient may require additional medication for better control. Recommend not to aggressively treat her diabetes as this may cause hypoglycemia in the elderly. Patient will need continue with a diabetic association diet at the [facility] facility. 3. Patient has hypothyroidism. Patient will continue with her medication-levothyroxine 25 mcg daily. 4. Patient has Alzheimer's dementia. Her dementia is severe. She is currently in an Alzheimer's unit. MRI unremarkable for acute stroke. She will continue with the medication-Ativan 0.5 mg 1 pill twice daily. Further adjustment in medication can be done by her PCP. 5. Patient with history of CVA. MRI unremarkable. Patient may continue with aspirin 81 mg daily. 6. Patient has pressure ulcers to the buttocks region. Patient evaluated by surgery. Surgery recommends santyl with damp to dry dressing changes on the right buttocks wound and DuoDerm on the left buttocks wound and pressure reduction strategy with rotation of the patient every 2 hr. This can be further addressed at the [facility]. 7. Patient found to have thrush. Patient will continue with nystatin oral solution [id number] units 3 times a day swish and swallow for 5 days. Diet: ADA Activity: Fall precautions Followup: Zenon Arrington MD [ACTIVE - CAN ADMIT] - 1 Week (Call for appointment.) Time spent managing pt's care (in minutes): 55
[2018-05-05] MEDS: ENOXAPARIN 40 MG/0.4 ML SQ SCH (09:45)
[2018-05-05] MEDS: METFORMIN HCL 500 MG TAB PO SCH (09:46)
[2018-05-05] MEDS: NYSTATIN 500,000 UNIT/5 ML UDC PO SCH ×2 (09:46→15:00)
[2018-05-05] MEDS: COLLAGENASE 30 GM OINTMENT TOP SCH (09:49)
[2018-05-05 12:48] VITALS: O2SAT 96
[2018-05-05 14:05] VITALS: BP 113/59; TEMP 97.3
== END 2018-05-05 15:29 | disposition home or self-care (01) ==
LOC: ER 18:05 → ERHOLD 22:30 → INTOOBSV 22:30 → 2ND 23:36
PROVIDERS: ADMIT Internal Medicine; ATTEND Internal Medicine
DX: G93.40 Encephalopathy, unspecified (principal); E11.65 Type 2 diabetes mellitus with hyperglycemia; G30.9 Alzheimer's disease, unspecified; F02.80 Dementia in other diseases classified elsewhere, unspecified severity, without behavioral disturbance, psychotic disturbance, mood disturbance, and anxiety; E03.9 Hypothyroidism, unspecified; L89.321 Pressure ulcer of left buttock, stage 1; L89.311 Pressure ulcer of right buttock, stage 1; L03.317 Cellulitis of buttock; B37.0 Candidal stomatitis; Z86.73 Personal history of transient ischemic attack (TIA), and cerebral infarction without residual deficits; Z88.2 Allergy status to sulfonamides
CPT/HCPCS: 36415 ×3; 51702; 70450; 70544; 70549; 70553; 71045; 80048 ×3; 80076; 81003 ×2; 82010; 82805; 82962 ×11; 83036; 83605; 83735 ×2; 84132; 84145; 84443; 84484; 85025 ×3; 87040 ×2; 93005; 96361; 96374; 97163; 99285; A9577; G0378 ×2; J1650 ×2; J7030 ×3; J3590

== ENCOUNTER 2018-06-02 03:55 | Emergency (ER) | payer OTHER ==
--- OUTSIDE RECORDS SUMMARY | 2018-06-02 03:57 | XMS REPORT | Clinical Summary ---
:1930 Author Organization [facility] Address [address] [place] [address] Care Team Providers Name Role Phone Nevin Keller PA-C Primary Care Provider Allergies Active Allergy Reactions Severity Noted Date Comments Codeine Hives 02/28/2014 Hives/rash Sulfa (Sulfonamide Antibiotics) Anaphylaxis High 02/28/2014 Medications Medication Sig Dispensed Refills Start Date End Date Status memantine (NAMENDA Take 1 tablet by 60 capsule 0 04/12/2017 Active XR) 7 mg mouth every morning capsule,sprinkle,ER for 2 weeks and 24hrIndications: then 2 tablets by Late onset mouth every morning Alzheimer's disease thereafter with behavioral disturbance Active Problems Problem Noted Date Late [...] Assigned at Date Recorded Not on file Job Start Date Occupation Industry Not on file Not on file Not on file Travel History Travel Start Travel End No recent travel history available. Last Filed Vital Signs Not on file Plan of Treatment Health Maintenance Due Date Last Done Comments SHINGRIX VACCINE (1 of 2) 1982 ZOSTER VACCINE 1992 PNEUMOCOCCAL-13 1997 INFLUENZA VACCINE 02/14/2018 06/16/2015, 06/08/2015, 05/31/2015, Additional history exists PNEUMOCOCCAL POLYSACCHARIDE VACCINE Completed 09/21/2015 AGE 65 AND OVER Results Not on fileafter 06/01/2017 Insurance Payer Benefit Plan / Group Subscriber ID Type Phone Address [facility] INDEMNITY xxxxxxxxxx Indemnity MEDICARE MEDICARE PART A AND B xxxxxxxxxx Medicare [place], [place] ([employer]) [place] [address] Advance Directives Patient has advance care planning documents on file. For more information, please contact:Ángel [address] [place] [address]
[2018-06-02] MEDS ORDERED: FENTANYL CITR 100 MCG/2 ML ONE ×2 (04:25→06:27)
[2018-06-02 04:26] LABS: Absolute Lymphocytes (CBC) 3.4 K/uL (0.7-4.9); Absolute Monocytes 1.1 K/uL (0.1-1.3); Absolute Neutrophil 5.2 K/uL (1.8-8.0); Basophils % 0.4 % (0-1.3); Eosinophils % 1.4 % (0-4.4); Hematocrit 37.7 % (36.0-45.0); MCH 32.8 pg (27.0-35.0); MPV 10.6 fL (7.6-11.3); Monocytes % 11.5 % (3.3-12.3); RBC Red Blood Cell Count 3.85 M/uL (3.86-4.86)
[2018-06-02] MEDS ORDERED: NA CHLORIDE 0.9% 1,000 ML ONE (04:26)
[2018-06-02] MEDS ORDERED: ONDANSETRON 4 MG/2 ML VIAL ONE (04:26)
[2018-06-02 04:27] LABS: Protime INR 1.03
[2018-06-02 04:45] LABS: ALT/SGPT 19 U/L (12-78); AST/SGOT 16 U/L (15-37); Albumin 3.6 g/dL (3.4-5.0); Alkaline Phosphatase 82 U/L (45-117); BUN Blood Urea Nitrogen 17 mg/dL (7-18); Bicarbonate 28 mmol/L (21-32); Bilirubin Direct 0.2 mg/dL (0-0.2); Bilirubin Total 0.7 mg/dL (0.2-1.0); Glucose Level 143 mg/dL (74-106); Magnesium 2.1 mg/dL (1.8-2.4); NT PRO-BNP 137 pg/mL (<450); Potassium 3.6 mmol/L (3.5-5.1); Protein, Total 7.3 g/dL (6.4-8.2); Sodium Level 143 mmol/L (136-145); Troponin (Emerg Dept Use Only) < 0.02 ng/mL (0.0-0.045)
--- NOTE | 2018-06-02 05:17 | ER ---
Nurse's Notes [facility] Name: Kendal Marc Age: 88 yrs Sex: Female : 1930 Arrival Date: 06/02/2018 Time: 03:56 Bed 3 Private MD: Diagnosis: Fall due to bumping against object;Laceration without foreign body of other part of head-scalp;Displaced intertrochanteric fracture of left femur;Nondisplaced fracture of greater tuberosity of left humerus;Dementia in other diseases classified elsewhere;Cystitis Presentation: 06/02 04:02 Presenting complaint: EMS states: Called to [facility] facility staff reports ea she was found in her bathroom at 3 AM, staff reported she hit the bathroom wall. EMS report pt has lac to back of head and left leg was painful and looked shortened. Care prior to arrival: dressing to lac. Mechanism of Injury: Fall from standing position. Trauma event details: Injury occurred in the [facility], Injury occurred: [facility] Injury occurred: June 02, 2018 Injury occurred at: 03:00. 04:02 Acuity: USSANA 3 ea 04:02 Method Of Arrival: EMS: [facility] ea 04:02 Onset of symptoms was June 02, 2018. Risk Assessment: Do you want to hurt yourself ea or someone else? Patient reports no desire to harm self or others. Initial Sepsis Screen: Does the patient meet any 2 criteria? No. Patient's initial sepsis screen is negative. Does the patient have a suspected source of infection? No. Patient's initial sepsis screen is negative. 04:02 Transition of care: patient was received from another setting of care (long-term care facility), [facility]. Trauma Activation: Alert Physician: ED Physician; Name: Dr. Diaz; Notified At: 03:52; Arrived At: 03:52 Physician: General Surgeon; Name: ; Notified At: 03:52; Arrived At: Physician: Radiology; Name: Rosalinda; Notified At: 03:52; Arrived At: 03:52 Physician: Respiratory; Name: Fernando; Notified At: 03:52; Arrived At: 03:52 Physician: Lab; Name: ; Notified At: 03:52; Arrived At: Historical: - Allergies: 04:37 Codeine; ea 04:37 Sulfa (Sulfonamide Antibiotics); ea 04:37 fenofibrate; ea - Home Meds: 04:37 levothyroxine 25 mcg tab 1 tab once daily [Active]; Razadyne 8 mg oral tab 1 tab QD ea [Active]; Seroquel 25 mg Oral tab 1 tab [Active]; glimepiride 4 mg Oral tab 1 tab once daily [Active]; pioglitazone 15 mg oral tab 1 tab once daily [Active]; - PMHx: 04:37 Alzheimers; Hypothyroidism; Anemia; Hyperlipidemia; polyosteoarthritis; ea - Immunization history:: Adult Immunizations up to date. - Social history:: Smoking status: Patient/guardian denies using tobacco. - Immunization history: Last tetanus immunization: - up to date. - Family history:: not pertinent. - Ebola Screening: : No symptoms or risks identified at this time. Screenin:00 Abuse screen: Denies threats or abuse. Nutritional screening: No deficits noted. ea Tuberculosis screening: No symptoms or risk factors identified. Fall Risk Fall in past 12 months (25 points). IV access (20 points). Primary Survey: 04:00 Breathing/Chest: Respiratory pattern: regular, Respiratory effort: spontaneous, ea unlabored, Breath sounds: clear. Circulation: Skin color: pale, Skin temperature: warm. Disability Alert. 05:15 Reassessment Airway Airway Patent Breathing/Chest Respiratory pattern Regular ea Respiratory effort Spontaneous Chest inspection Symmetrical Circulation Temperature Warm. Secondary Survey: 04:00 :. Musculoskeletal: shortened left leg. Injury Description: Laceration sustained to ea right parietal area is 2.6 to 7.5 cm long. Assessment: 04:00 General: Appears uncomfortable, Behavior is cooperative, appropriate for age. Pain: ea Complains of pain in right parietal area, posterior aspect of left shoulder and left leg. Neuro: Level of Consciousness is awake, alert, Oriented to person, place. Cardiovascular: Patient's skin is warm and dry. Respiratory: Airway is patent Respiratory effort is even, unlabored, Respiratory pattern is regular, symmetrical. Derm: Skin is dry, Skin is pale, Skin temperature is warm. Injury Description: Deformity sustained to left leg is left leg is shortened Laceration sustained to right parietal area. 05:39 Reassessment: Patient and/or family updated on plan of care and expected duration. Pain ea level reassessed. Pt alert and oriented to self and place. Respirations even and unlabored, chest expansions even and unlabored. No s/s of pain or discomfort at this time. Pt reports pain medication helped with pain. 06:05 Reassessment: Report called to Panda RODRIGUEZ at [facility]. ea 06:44 Reassessment: Patient and/or family updated on plan of care and expected duration. Pain ea level reassessed. Pt alert and oriented x 2. Respirations even and unlabored, chest expansions even and symmetrical. No s/s of pain or discomfort noted at this time. [facility] at facility for transfer. Vital Signs: 04:00 BP 110 / 68; Pulse 78; Resp 17; Temp 98.6; Pulse Ox 97% on R/A; Weight 49.9 kg; ea 05:38 BP 108 / 70; Pulse 87; Resp 18; Pulse Ox 99% on R/A; ea 06:47 BP 108 / 77; Pulse 74; Resp 17; Temp 98.2; Pulse Ox 100% on 2 lpm NC; ea 06:47 pt O2 sats decreased to 94% RA, pt placed on 2L per n/c, tolerating well ea Belia Coma Score: 04:00 Eye Response: spontaneous(4). Verbal Response: confused(4). Motor Response: obeys ea commands(6). Total: 14. Trauma Score (Adult): 04:00 Eye Response: spontaneous(1); Verbal Response: confused(1); Motor Response: obeys ea commands(2); Systolic BP: > 89 mm Hg(4); Respiratory Rate: 10 to 29 per min(4); Belia Score: 14; Trauma Score: 12 ED Course: 03:56 Patient arrived in ED. al2 04:00 Patient has correct armband on for positive identification. Bed in low position. Call ea light in reach. Side rails up X2. 04:02 Arm band placed on right wrist. Patient placed in an exam room, on a stretcher, on ea pulse oximetry. 04:04 Rodger Diaz MD is Attending Physician. sola 04:05 Patient maintains SpO2 saturation greater than 95% on room air. ea 04:07 Triage completed. ea 04:09 Inserted saline lock: 20 gauge in left antecubital area, using aseptic technique. Blood ao collected. 04:16 Thermoregulation: warm blanket given to patient. ea 04:22 Patient moved to radiology via stretcher. sg4 04:45 XRAY Chest (1 view) In Process Unspecified. EDMS 04:45 Pelvis XRAY In Process Unspecified. EDMS 04:45 Hip Left 2 View XRAY In Process Unspecified. EDMS 04:45 Shoulder Left (2 View) XRAY In Process Unspecified. EDMS 04:45 X-ray completed. Patient tolerated procedure poorly. sg4 04:56 Sydney Mcdaniels, RN is Primary Nurse. ea 05:06 CT Head C Spine In Process Unspecified. EDMS 05:34 Enrique cath inserted, using sterile technique, 16 Fr., by co, balloon inflated, to ea gravity drainage, urine specimen collected. 05:45 Inserted saline lock: 22 gauge in right forearm, using aseptic technique. ao 05:47 No provider procedures requiring assistance completed. ea 06:08 Patient transferred, IV remains in place. ea Administered Medications: 05:00 Drug: NS 0.9% 1000 ml Route: IV; Rate: 125 ml/hr; Site: left antecubital; ea 06:06 Follow up: IV Status: Infusion continued upon transfer ea 05:00 Drug: fentaNYL (PF) 25 mcg Route: IVP; Site: right antecubital; ea 05:45 Follow up: Response: No adverse reaction; Pain is decreased ea 05:00 Drug: Zofran 4 mg Route: IVP; Site: left antecubital; ea 05:45 Follow up: Response: No adverse reaction ea 05:45 Drug: Rocephin - (cefTRIAXone) 1 grams Route: IVPB; Infused Over: 30 mins; Site: left ea antecubital; 06:13 Follow up: Response: No adverse reaction; IV Status: Completed infusion ea 06:28 Drug: fentaNYL (PF) 50 mcg Route: IVP; Site: left antecubital; ea 06:43 Follow up: Response: No adverse reaction; Pain is decreased ea Intake: 06:08 PO: 0ml; IV: 250ml; Total: 250ml. ea Output: 06:08 Urine: 125ml (Enrique); Total: 125ml. ea Outcome: 05:16 ER care complete, transfer ordered by . sola 05:47 Instructed on Son instructed on need for transfer. Demonstrated understanding of ea instructions. 06:44 Condition: stable ea 06:46 Pt being transferred to [place] Patient's length of stay extended due to ea 06:53 Transferred by ground EMS to [facility], Transfer form completed. ea 06:58 Patient left the ED. ea Addendum: 06/05/2018 07:34 Addendum: Culture Results: Positive urine culture. No further action required. Other: i w report reviewed by ALYCE Ace, pt was transferred to [place], received IV Rocephin in ER. Signatures: Dispatcher [employer] EDMS Rodger Diaz MD MD cha Williams, Irene RN Betty Chi RN Francisco Haynes, RN Sydney Heard, RN MICHAEL John, Dafne Ag4
--- NOTE | 2018-06-02 05:18 | EDPHYS ---
Physician Documentation [facility] Name: Kendal Marc Age: 88 yrs Sex: Female : 1930 Arrival Date: 06/02/2018 Time: 03:56 Bed 3 Private MD: ED Physician Rodger Diaz HPI: 06/02 04:12 This 88 yrs old Female presents to ER via EMS with complaints of fall, left sola hip and left shoulder pain. 04:12 This 88 yrs old Female presents to ER via EMS with complaints of left hip and sola shoulder pain. 04:12 The patient or guardian reports injury, a laceration, pain, swelling, tenderness. The sola complaints affect the left occipital area and right occipital area. Context of injury: The problem was sustained at home, at a jail or assisted living facility. Onset: The symptoms/episode began/occurred just prior to arrival. Associated signs and symptoms: Loss of consciousness: This patient did not experience any loss of consciousness. Pertinent positives: headache. The patient or guardian reports decreased range of motion, deformity, an injury, pain, swelling. The complaints affect the left arm and left leg. Historical: - Allergies: 04:37 Codeine; ea 04:37 Sulfa (Sulfonamide Antibiotics); ea 04:37 fenofibrate; ea - Home Meds: 04:37 levothyroxine 25 mcg tab 1 tab once daily [Active]; Razadyne 8 mg oral tab 1 tab QD ea [Active]; Seroquel 25 mg Oral tab 1 tab [Active]; glimepiride 4 mg Oral tab 1 tab once daily [Active]; pioglitazone 15 mg oral tab 1 tab once daily [Active]; - PMHx: 04:37 Alzheimers; Hypothyroidism; Anemia; Hyperlipidemia; polyosteoarthritis; ea - Immunization history:: Adult Immunizations up to date. - Social history:: Smoking status: Patient/guardian denies using tobacco. - Immunization history: Last tetanus immunization: - up to date. - Family history:: not pertinent. - Ebola Screening: : No symptoms or risks identified at this time. ROS: 04:12 Constitutional: Negative for fever, chills, and weight loss, Eyes: Negative for injury, sola pain, redness, and discharge, ENT: Negative for injury, pain, and discharge, Cardiovascular: Negative for chest pain, palpitations, and edema, Respiratory: Negative for shortness of breath, cough, wheezing, and pleuritic chest pain, Abdomen/GI: Negative for abdominal pain, nausea, vomiting, diarrhea, and constipation, Back: Negative for injury and pain, : Negative for injury, bleeding, discharge, and swelling, Skin: Negative for injury, rash, and discoloration, Neuro: Negative for headache, weakness, numbness, tingling, and seizure, Psych: Negative for depression, anxiety, suicide ideation, homicidal ideation, and hallucinations, Allergy/Immunology: Negative for hives, rash, and allergies, Endocrine: Negative for neck swelling, polydipsia, polyuria, polyphagia, and marked weight changes, Hematologic/Lymphatic: Negative for swollen nodes, abnormal bleeding, and unusual bruising. 04:12 Neck: Positive for pain with movement. 04:12 MS/extremity: Positive for decreased range of motion, pain, tenderness, of the left leg. Exam: 04:12 Constitutional: This is a well developed, well nourished patient who is awake, alert, sola and in no acute distress. Eyes: Pupils equal round and reactive to light, extra-ocular motions intact. Lids and lashes normal. Conjunctiva and sclera are non-icteric and not injected. Cornea within normal limits. Periorbital areas with no swelling, redness, or edema. ENT: Nares patent. No nasal discharge, no septal abnormalities noted. Tympanic membranes are normal and external auditory canals are clear. Oropharynx with no redness, swelling, or masses, exudates, or evidence of obstruction, uvula midline. Mucous membranes moist. Neck: Trachea midline, no thyromegaly or masses palpated, and no cervical lymphadenopathy. Supple, full range of motion without nuchal rigidity, or vertebral point tenderness. No Meningismus. Chest/axilla: Normal chest wall appearance and motion. Nontender with no deformity. No lesions are appreciated. Cardiovascular: Regular rate and rhythm with a normal S1 and S2. No gallops, murmurs, or rubs. Normal PMI, no JVD. No pulse deficits. Respiratory: Lungs have equal breath sounds bilaterally, clear to auscultation and percussion. No rales, rhonchi or wheezes noted. No increased work of breathing, no retractions or nasal flaring. Abdomen/GI: Soft, non-tender, with normal bowel sounds. No distension or tympany. No guarding or rebound. No evidence of tenderness throughout. Back: No spinal tenderness. No costovertebral tenderness. Full range of motion. Female : Normal external genitalia. Skin: Warm, dry with normal turgor. Normal color with no rashes, no lesions, and no evidence of cellulitis. Psych: Awake, alert, with orientation to person, place and time. Behavior, mood, and affect are within normal limits. 04:12 Musculoskeletal/extremity: ROM: limited active range of motion due to pain, limited passive range of motion due to pain, Circulation is intact in all extremities. Sensation intact. Compartment Syndrome exam of affected extremity: is normal. DVT Exam: negative Homans' sign noted on exam, no appreciated bluish discoloration, no erythema, no increased warmth, pain, swelling, tenderness. Vital Signs: 04:00 BP 110 / 68; Pulse 78; Resp 17; Temp 98.6; Pulse Ox 97% on R/A; Weight 49.9 kg; ea 05:38 BP 108 / 70; Pulse 87; Resp 18; Pulse Ox 99% on R/A; ea 06:47 BP 108 / 77; Pulse 74; Resp 17; Temp 98.2; Pulse Ox 100% on 2 lpm NC; ea 06:47 pt O2 sats decreased to 94% RA, pt placed on 2L per n/c, tolerating well ea Belia Coma Score: 04:00 Eye Response: spontaneous(4). Verbal Response: confused(4). Motor Response: obeys ea commands(6). Total: 14. Trauma Score (Adult): 04:00 Eye Response: spontaneous(1); Verbal Response: confused(1); Motor Response: obeys ea commands(2); Systolic BP: > 89 mm Hg(4); Respiratory Rate: 10 to 29 per min(4); Belia Score: 14; Trauma Score: 12 MDM: 04:04 Patient medically screened. [facility] 04:16 Data reviewed: vital signs, nurses notes, lab test result(s), EKG, radiologic studies, [facility] CT scan, plain films. 06/02 04:11 Order name: Basic Metabolic Panel [facility] 06/02 04:11 Order name: CBC with Diff; Complete Time: 04:58 [facility] 06/02 04:11 Order name: LFT's; Complete Time: 04:58 [facility] 06/02 04:11 Order name: Magnesium; Complete Time: 04:58 [facility] 06/02 04:11 Order name: NT PRO-BNP; Complete Time: 04:58 [facility] 06/02 04:11 Order name: PT-INR; Complete Time: 04:58 [facility] 06/02 04:11 Order name: Troponin (emerg Dept Use Only); Complete Time: 04:58 [facility] 06/02 04:11 Order name: XRAY Chest (1 view) [facility] 06/02 04:11 Order name: Type And Screen [facility] 06/02 04:11 Order name: Pelvis XRAY [facility] 06/02 04:11 Order name: Urine Culture [facility] 06/02 04:11 Order name: Basic Metabolic Panel; Complete Time: 04:58 [facility] 06/02 05:43 Order name: Urine Dipstick--Ancillary (enter results); Complete Time: 06:06 06/02 06:14 Order name: ABO/RH no charge [facility] 06/02 04:11 Order name: EKG; Complete Time: 04:12 [facility] 06/02 04:11 Order name: Cardiac monitoring; Complete Time: 05:46 [facility] 06/02 04:11 Order name: EKG - Nurse/Tech; Complete Time: 05:46 [facility] 06/02 04:11 Order name: IV Saline Lock; Complete Time: 04:14 [facility] 06/02 04:11 Order name: Labs collected and sent; Complete Time: 04:14 [facility] 06/02 04:11 Order name: O2 Per Protocol; Complete Time: 04:14 [facility] 06/02 04:11 Order name: O2 Sat Monitoring; Complete Time: 05:16 [facility] 06/02 04:11 Order name: Hip Left 2 View XRAY [facility] 06/02 04:11 Order name: Shoulder Left (2 View) XRAY [facility] 06/02 04:11 Order name: Urine Dipstick-Ancillary (obtain specimen); Complete Time: 05:40 [facility] 06/02 04:11 Order name: CT Head C Spine [facility] 06/02 04:11 Order name: Enrique; Complete Time: 05:33 [facility] 06/02 04:58 Order name: Shoulder Immobilizer; Complete Time: 06:43 [facility] Administered Medications: 05:00 Drug: NS 0.9% 1000 ml Route: IV; Rate: 125 ml/hr; Site: left antecubital; ea 06:06 Follow up: IV Status: Infusion continued upon transfer ea 05:00 Drug: fentaNYL (PF) 25 mcg Route: IVP; Site: right antecubital; ea 05:45 Follow up: Response: No adverse reaction; Pain is decreased ea 05:00 Drug: Zofran 4 mg Route: IVP; Site: left antecubital; ea 05:45 Follow up: Response: No adverse reaction ea 05:45 Drug: Rocephin - (cefTRIAXone) 1 grams Route: IVPB; Infused Over: 30 mins; Site: left ea antecubital; 06:13 Follow up: Response: No adverse reaction; IV Status: Completed infusion ea 06:28 Drug: fentaNYL (PF) 50 mcg Route: IVP; Site: left antecubital; ea 06:43 Follow up: Response: No adverse reaction; Pain is decreased ea Disposition: 06/02/18 05:16 Transfer ordered to [facility]. Diagnosis are Fall due to bumping against object, Laceration without foreign body of other part of head - scalp, Displaced intertrochanteric fracture of left femur, Nondisplaced fracture of greater tuberosity of left humerus, Dementia in other diseases classified elsewhere, Cystitis. - Reason for transfer: Higher level of care. - Accepting physician is to [facility]. - Condition is Fair. - Problem is new. - Symptoms have improved. Signatures: Dispatcher [employer] Rodger Ta MD MD cha Antunez, Elena, RN RN ea Starr, Gregory, MD MD gs Corrections: (The following items were deleted from the chart) 06:06 05:16 06/02/2018 05:16 Transfer ordered to [facility]. sola Diagnosis is Fall due to bumping against object; Laceration without foreign body of other part of head - scalp; Displaced intertrochanteric fracture of left femur; Nondisplaced fracture of greater tuberosity of left humerus; Dementia in other diseases classified elsewhere. Reason for transfer: Higher level of care. Accepting physician is to [facility]. Condition is Fair. Problem is new. Symptoms have improved. sola 06:58 06:06 06/02/2018 05:16 Transfer ordered to [facility]. ea Diagnosis is Fall due to bumping against object; Laceration without foreign body of other part of head - scalp; Displaced intertrochanteric fracture of left femur; Nondisplaced fracture of greater tuberosity of left humerus; Dementia in other diseases classified elsewhere; Cystitis. Reason for transfer: Higher level of care. Accepting physician is to [facility]. Condition is Fair. Problem is new. Symptoms have improved. sola
[2018-06-02] MEDS ORDERED: CEFTRIAXONE/SWI 1gm 0 GM/0 ML SYR ONE (05:40)
[2018-06-02] MEDS ORDERED: CEFTRIAXONE/SWI 1gm 1 GM/10 ML SYR ONE (05:41)
[2018-06-02 06:00] LABS: Urine Blood 1+ (NEG); Urine Glucose NEGATIVE (NEG); Urine Protein NEGATIVE (NEG)
[2018-06-02 07:11] VITALS: BP 108/77; TEMP 98.2; O2SAT 100
--- NOTE | 2018-06-02 11:01 | RAD REPORT ---
EXAM DESCRIPTION: CT - [id number] - 06/02/2018 6:47 am CLINICAL HISTORY: Trauma, head and neck injury. PAIN COMPARISON: CT HEAD CSPINE MPR WO CONTRAST dated 10/06/2014; SPINE THORACICAP LAT dated 02/04/2015 TECHNIQUE: Axial 5 mm thick images of the head were obtained. Axial 2 mm thick images of the cervical spine were obtained with sagittal and coronal reconstruction images generated and reviewed. All CT scans are performed using dose optimization technique as appropriate and may include automated exposure control or mA/KV adjustment according to patient size. FINDINGS: CT HEAD WITHOUT CONTRAST: No acute hemorrhage, hydrocephalus or extra-axial collection is identified.Advanced generalized brain atrophy is present with advanced periventricular and deep white matter chronic microvascular ischemi c changes.No areas of brain edema or midline shift. The paranasal sinuses and mastoids are clear.The calvarium is intact. CT CERVICAL SPINE WITHOUT CONTRAST: No fracture or subluxation.No prevertebral soft tissues swelling is identified. Mild wedging of T3 is noted, age undetermined. IMPRESSION: No acute intracranial or cervical spine findings. Mild wedge deformity of T3 noted, age undetermined. If the patient has significant back pain, MR thor acic spine would be indicated for followup.
--- NOTE | 2018-06-02 11:03 | RAD REPORT ---
EXAM DESCRIPTION: RAD - Chest Single View - 06/02/2018 4:45 am CLINICAL HISTORY: COUGH Chest pain. COMPARISON: Chest Single View dated 05/03/2018; Chest Single View dated 12/02/2017; CHEST PA AND LAT 2 VIEW dated 01/24/2014; ABDOMEN ACUTE SERIES dated 07/06/2009 FINDINGS: Portable technique limits examination quality. The lungs are emphysematous but clear. The heart is normal in size. Diffuse osteopenia is seen. No di splaced fracture evident. IMPRESSION: COPD.
--- NOTE | 2018-06-02 11:08 | RAD REPORT ---
EXAM DESCRIPTION: RAD - Pelvis - 06/02/2018 4:45 am CLINICAL HISTORY: PAIN Trauma, fall COMPARISON: None FINDINGS: AP pelvis and left hip -multiple projections Comminuted intratrochanteric fracture proximal left femur is seen with varus angulation. No dislocati on is evident. The bones are diffusely osteopenic.
--- NOTE | 2018-06-02 11:10 | RAD REPORT ---
EXAM DESCRIPTION: RAD - Shoulder Left 2 View - 06/02/2018 4:45 am CLINICAL HISTORY: PAIN COMPARISON: No comparisons FINDINGS: Diffuse osteopenia is seen. No fracture or subluxation present. No aggressive marrow patte rn.
--- NOTE | 2018-06-03 05:51 | EKG ---
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
--- NOTE | 2018-06-04 09:24 | RAD REPORT ---
EXAM DESCRIPTION: RAD - Hip Left 2 View - 06/02/2018 4:45 am CLINICAL HISTORY: PAIN Trauma, fall COMPARISON: None FINDINGS: AP pelvis and left hip -multiple projections Comminuted intratrochanteric fracture proximal left femur is seen with varus angulation. No dislocati on is evident. The bones are diffusely osteopenic.
== END 2018-06-02 06:58 | disposition short-term general hospital (02) ==
LOC: ER 03:55
DX: S72.142A Displaced intertrochanteric fracture of left femur, initial encounter for closed fracture (principal); S42.255A Nondisplaced fracture of greater tuberosity of left humerus, initial encounter for closed fracture; S01.01XA Laceration without foreign body of scalp, initial encounter; N30.90 Cystitis, unspecified without hematuria; W18.00XA Striking against unspecified object with subsequent fall, initial encounter; Y93.9 Activity, unspecified; Y92.129 Unspecified place in nursing home as the place of occurrence of the external cause; Z88.2 Allergy status to sulfonamides; Z88.5 Allergy status to narcotic agent; Z88.8 Allergy status to other drugs, medicaments and biological substances; E78.5 Hyperlipidemia, unspecified; E03.9 Hypothyroidism, unspecified; G30.9 Alzheimer's disease, unspecified; F02.80 Dementia in other diseases classified elsewhere, unspecified severity, without behavioral disturbance, psychotic disturbance, mood disturbance, and anxiety
CPT/HCPCS: 36415; 51702; 70450; 71045; 72125; 72170; 73030; 73502; 80048; 80076; 81003; 83735; 83880; 84484; 85025; 85610; 86850; 86900; 86901; 87077; 87086; 87088; 87186; 93005; 99285; J0696; J2405; J3010 ×2; J7030